=== PATIENT | male | born 1950 | race Caucasian/White ===

== ENCOUNTER 2023-09-11 11:05 | Day surgery (SDC) | payer MEDICARE ==
[2023-09-07 17:06] LABS: MEAN PLATELET VOLUME 8.2 FL (7.4-10.4); PRE OP PLATELET COUNT 263 X10'3 (140-440)
[2023-09-07 17:09] LABS: BASOPHILS % (AUTO) 0.4 % (0-1); EOSINOPHILS # (AUTO) 0.3 X10'3 (0-0.9); EOSINOPHILS % (AUTO) 3.9 % (0-6); LYMPHOCYTES # (AUTO) 1.6 X10'3 (1.1-4.8); LYMPHOCYTES % (AUTO) 22.7 % (21-51); MEAN CORPUSCULAR HEMOGLOBIN 30.7 PG (27.0-31.0); MEAN CORPUSCULAR HGB CONC 33.9 g/dL (33.0-36.5); MEAN CORPUSCULAR VOLUME 90.6 FL (78-98); MONOCYTES # (AUTO) 0.6 X10'3 (0-0.9); MONOCYTES % (AUTO) 8.4 % (2-12); NEUTROPHILS # (AUTO) 4.6 X10'3 (1.8-7.7); NEUTROPHILS % (AUTO) 64.6 % (42-75); PRE OP HEMATOCRIT 39.8 % (42.0-52.0); PRE OP HEMOGLOBIN 13.5 g/dL (14.0-17.9); PRE OP WHITE BLOOD COUNT 7.2 10'3 (4.8-10.8); RED CELL DISTRIBUTION WIDTH 13.8 % (11.5-14.5)
[2023-09-07 17:42] LABS: ALBUMIN 3.5 G/DL (3.4-5.0); ALBUMIN/GLOBULIN RATIO 1.1 (1.1-1.5); ALKALINE PHOSPHATASE 63 IU/L (46-116); BLOOD UREA NITROGEN 25 MG/DL (7-18); BUN/CREATININE RATIO 21.9 (10.0-20.0); CALCIUM 8.4 MG/DL (8.5-10.1); CHLORIDE 108 MMOL/L (99-107); CREATININE 1.14 MG/DL (0.60-1.10); PRE OP ALT 28 U/L (30-65); PRE OP ANION GAP 13 (8-16); PRE OP AST 19 U/L (10-37); PRE OP BILIRUB, TOTAL 0.4 MG/DL (0.0-1.0); PRE OP SODIUM 145 MMOL/L (135-145); TOTAL CARBON DIOXIDE 24.5 MMOL/L (24-32); TOTAL PROTEIN 6.8 G/DL (6.4-8.2); eGFR 63 ML/MIN
[2023-09-07 17:43] LABS: PRE OP GLUCOSE 99 MG/DL (70-104)
[~2023-09-11] VITALS: Ht 170.2 cm; Wt 63.2 kg
[2023-09-11] VITALS (11 sets, daily range): BP systolic 101–118; BP diastolic 60–75; PULSE 49–88; RESP 10–16; TEMP 97.6; O2SAT 96–100
[2023-09-11] MEDS: cefazolin 2gm/D5W 100mL 100 ML IV ONE (05:30)
[~2023-09-11 11:05] MED LIST: ATOR10TA70 PO; WARF7.5T48 PO
[2023-09-11] MEDS ORDERED: fentaNYL/PF 50MCG/1 ML 2ML syringe ONE (12:25)
[2023-09-11] MEDS ORDERED: midazolam 1 mg/ML 2ml injection ONE (12:25)
[2023-09-11] MEDS ORDERED: LIDOcaine 0.5% (5mg/ml) 50ml vial ONE (12:25)
[2023-09-11] MEDS ORDERED: labetalol 20mg/4ml (5mg/ml) syringe IV PRN (12:35)
[2023-09-11] MEDS ORDERED: morphine 2 MG/ML inj. syringe IV PRN (12:35)
[2023-09-11] MEDS ORDERED: ringers solution, lacted 1,000 ML IV SCH (12:35)
[2023-09-11] MEDS ORDERED: morphine 4 MG/ML inj SYRINge IV PRN (12:35)
[2023-09-11] MEDS ORDERED: ondansetron/PF 4mg/2ml inj IV PRN (12:35)
[2023-09-11] MEDS: famotidine 20mg tablet PO ONE (12:48)
[2023-09-11] MEDS: ringers solution, lacted 1,000 ML IV SCH (12:49)
[2023-09-11 13:00] LABS: APTT 34 SECONDS (22-32); INR 1.5 INR; PROTHROMBIN TIME 15.6 SECONDS (9.0-12.0)
[2023-09-11] MEDS: BUPIVAcaine/PF 2.5mg/ml (0.25%) 10ml vial ONE (13:34)
== END 2023-09-11 15:43 | disposition home or self-care (01) ==
LOC: PAS 11:05
PROVIDERS: ATTEND Orthopaedic Surgery Hand Surgery
DX: S66.121A Laceration of flexor muscle, fascia and tendon of left index finger at wrist and hand level, initial encounter (principal); E78.00 Pure hypercholesterolemia, unspecified; G47.33 Obstructive sleep apnea (adult) (pediatric); M19.90 Unspecified osteoarthritis, unspecified site; Z86.718 Personal history of other venous thrombosis and embolism; Z79.01 Long term (current) use of anticoagulants; Z79.891 Long term (current) use of opiate analgesic; Z79.899 Other long term (current) drug therapy; X58.XXXA Exposure to other specified factors, initial encounter; Y93.89 Activity, other specified; Y92.89 Other specified places as the place of occurrence of the external cause; Y99.8 Other external cause status
CPT/HCPCS: 26350; 36415; 80053; 82948; 85025; 85610; 85730; 93005; J0690; J2250; J3010; J3490; J7030; J7120; Z7506; Z7512; A4215; A4618; A7000